=== PATIENT | female | born 1990 | race Caucasian/White ===

== ENCOUNTER 2020-03-13 10:03 | Emergency (ER) | payer OTHER ==
[~2020-03-13] VITALS: Ht 162.6 cm; Wt 68.0 kg
[2020-03-13 10:44] LABS: HEMATOCRIT 41.3 % (37.0-47.0); HEMOGLOBIN 13.3 g/dl (12.0-16.0); IMMATURE GRANULOCYTES 0.3 % (0.0-5.0); MEAN CELL VOLUME 90.2 fL CALC (80.0-100.0); MEAN CORPUSCULAR HGB CONC 32.2 g/dL CAL (32.0-36.0); NEUT# 4.82 thou/uL (2.00-7.15); RED BLOOD COUNT 4.58 mill/uL (4.20-5.60); RED CELL DISTRI WIDTH 11.7 % (11.5-15.5)
[2020-03-13 11:03] LABS: ALBUMIN 4.5 g/dL (3.2-5.0); ALKALINE PHOSPHATASE 56 u/l (38-126); ANION GAP 11 (6-22 (CALC)); BILIRUBIN, TOTAL 0.4 mg/dL (0.0-1.4); BUN 13 mg/dL (7-17); BUN/CREATININE RATIO 15 (12-20 (CALC)); CARBON DIOXIDE 28 mmol/l (22-30); CHLORIDE 104 mmol/l (95-108); CREATININE 0.8 mg/dL (0.5-1.0); GFR > 60 ML/MIN (>=60 (CALC)); GFR FOR AFR.AMER. > 60 ML/MIN (>=60 (CALC)); LIPASE 54 u/l (23-300); SGOT/AST 31 u/l (14-36); SODIUM 138 mmol/l (137-146); TOTAL PROTEIN 7.7 g/dL (6.3-8.2)
[2020-03-13 11:07] LABS: ETHYL ALCOHOL 0 mg/dl (0-30)
[2020-03-13 11:46] LABS: URINE BILIRUBIN - DIPSTICK NEGATIVE (NEGATIVE); URINE BLOOD DIPSTICK NEGATIVE (NEGATIVE); URINE COLOR YELLOW; URINE GLUCOSE - DIPSTICK NEGATIVE (NEGATIVE); URINE KETONE NEGATIVE (NEGATIVE); URINE LEUK ESTERASE NEGATIVE (NEGATIVE); URINE NITRITE - DIPSTICK NEGATIVE (Negative); URINE PH 6.5 (4.5-8.0); URINE PROTEIN - DIPSTICK NEGATIVE (NEG-TRACE); URINE SPECIFIC GRAVITY 1.015; URINE UROBILINOGEN - DIPSTICK 0.2 E.U./dL (0.2)
[2020-03-13] MEDS ORDERED: ZOFRAN4 M1 PO (13:30)
[2020-03-13] MEDS ORDERED: PROTONIX40 M2 PO (13:30)
[2020-03-13 13:42] VITALS: BP 116/68
== END 2020-03-13 13:44 | disposition home or self-care (01) | DRG 392 ==
LOC: ED 10:03
PROVIDERS: Family Medicine
DX: R10.13 Epigastric pain (principal); R10.11 Right upper quadrant pain; K82.9 Disease of gallbladder, unspecified; Z20.828 Contact with and (suspected) exposure to other viral communicable diseases

== ENCOUNTER 2021-08-01 05:50 | Emergency (ER) | payer OTHER ==
[~2021-08-01] VITALS: Ht 162.6 cm; Wt 72.0 kg
[~2021-08-01 05:50] MED LIST: PROTONIX40 M2 PO; ZOFRAN4 M1 PO
[2021-08-01 07:04] LABS: URINE BILIRUBIN - DIPSTICK NEGATIVE (NEGATIVE); URINE BLOOD DIPSTICK NEGATIVE (NEGATIVE); URINE COLOR YELLOW; URINE GLUCOSE - DIPSTICK NEGATIVE (NEGATIVE); URINE KETONE NEGATIVE (NEGATIVE); URINE LEUK ESTERASE NEGATIVE (NEGATIVE); URINE PROTEIN - DIPSTICK NEGATIVE (NEG-TRACE); URINE UROBILINOGEN - DIPSTICK 0.2 E.U./dL (0.2)
[2021-08-01 07:04] LABS: IMMATURE GRANULOCYTES 0.1 % (0.0-5.0); MEAN CELL VOLUME 87.4 fL CALC (80.0-100.0); MEAN CORPUSCULAR HGB 28.4 pG CALC (26.0-32.0); MEAN CORPUSCULAR HGB CONC 32.5 g/dL CAL (32.0-36.0); NEUT# 3.25 thou/uL (2.00-7.15); RED BLOOD COUNT 5.71 mill/uL (4.20-5.60); RED CELL DISTRI WIDTH 13.2 % (11.5-15.5)
[2021-08-01 07:13] LABS: HEMATOCRIT 49.9 % (37.0-47.0); HEMOGLOBIN 16.2 g/dl (12.0-16.0)
[2021-08-01 07:19] LABS: ALBUMIN 4.7 g/dL (3.2-5.0); ALKALINE PHOSPHATASE 76 u/l (38-126); AMYLASE 69 u/l (30-110); ANION GAP 14 (6-22 (CALC)); BILIRUBIN, TOTAL 0.5 mg/dL (0.0-1.4); BUN 16 mg/dL (7-17); BUN/CREATININE RATIO 19 (12-20 (CALC)); CARBON DIOXIDE 27 mmol/l (22-30); CHLORIDE 104 mmol/l (95-108); CREATININE 0.8 mg/dL (0.5-1.0); GFR > 60 ML/MIN (>=60 (CALC)); GFR FOR AFR.AMER. > 60 ML/MIN (>=60 (CALC)); LIPASE 49 u/l (23-300); SGOT/AST 30 u/l (14-36); SODIUM 141 mmol/l (137-146); TOTAL PROTEIN 7.9 g/dL (6.3-8.2)
[2021-08-01 07:39] LABS: URINE NITRITE - DIPSTICK NEGATIVE (Negative)
[2021-08-01 09:22] VITALS: BP 129/81
== END 2021-08-01 09:29 | disposition home or self-care (01) | DRG 392 ==
LOC: ED 05:50
PROVIDERS: Emergency Medicine
DX: K59.00 Constipation, unspecified (principal)
CPT/HCPCS: Q9967

== ENCOUNTER 2021-09-04 05:49 | Emergency (ER) | payer OTHER ==
[2021-09-04] VITALS (13 sets, daily range): BP systolic 105–131; BP diastolic 60–88
[~2021-09-04] VITALS: Ht 162.6 cm; Wt 73.0 kg
[2021-09-04 06:33] LABS: URINE BILIRUBIN - DIPSTICK NEGATIVE (NEGATIVE); URINE BLOOD DIPSTICK NEGATIVE (NEGATIVE); URINE COLOR YELLOW; URINE GLUCOSE - DIPSTICK NEGATIVE (NEGATIVE); URINE KETONE NEGATIVE (NEGATIVE); URINE LEUK ESTERASE TRACE (NEGATIVE); URINE PH 5.5 (4.5-8.0); URINE PROTEIN - DIPSTICK NEGATIVE (NEG-TRACE); URINE SPECIFIC GRAVITY >=1.030; URINE UROBILINOGEN - DIPSTICK 0.2 E.U./dL (0.2)
[2021-09-04 06:35] LABS: URINE NITRITE - DIPSTICK NEGATIVE (Negative)
[2021-09-04] MEDS ORDERED: METRONIDAZOLE500 MG PO (07:06)
[2021-09-04] MEDS ORDERED: DIFLUCAN150 MG PO (07:06)
== END 2021-09-04 07:22 | disposition home or self-care (01) | DRG 759 ==
LOC: ED 05:49
PROVIDERS: Family Medicine
DX: N76.0 Acute vaginitis (principal)

== ENCOUNTER 2022-03-31 08:28 | Emergency (ER) | payer BC ==
[~2022-03-31] VITALS: Ht 162.6 cm; Wt 72.0 kg
[~2022-03-31 08:28] MED LIST changes: +DIFLUCAN150 MG PO; +METRONIDAZOLE500 MG PO
[2022-03-31] MEDS ORDERED: AMOX/K CLAV875 M1 PO (09:00)
[2022-03-31 10:20] VITALS: BP 141/119
[2022-03-31] MEDS ORDERED: HYDROCO/APAP1 TA9 PO (13:13)
[2022-03-31] MEDS ORDERED: ZOFRAN4 MG/TAB PO (13:14)
== END 2022-03-31 10:32 | disposition home or self-care (01) | DRG 605 ==
LOC: ED 08:28
DX: S60.371A Other superficial bite of right thumb, initial encounter (principal); W54.0XXA Bitten by dog, initial encounter

== ENCOUNTER 2022-04-08 17:31 | Emergency (ER) | payer BC ==
[~2022-04-08] VITALS: Ht 162.6 cm; Wt 73.0 kg
[~2022-04-08 17:31] MED LIST changes: +AMOX/K CLAV875 M1 PO; +HYDROCO/APAP1 TA9 PO; +ZOFRAN4 MG/TAB PO
[2022-04-08 18:13] VITALS: BP 134/93
[2022-04-08 18:15] VITALS: BP 124/83
[2022-04-08 18:31] VITALS: BP 120/66
[2022-04-08 19:22] VITALS: BP 120/66
== END 2022-04-08 19:22 | disposition home or self-care (01) | DRG 951 ==
LOC: ED 17:31
DX: Z48.02 Encounter for removal of sutures (principal)

== ENCOUNTER 2022-05-30 19:27 | Emergency (ER) | payer BC | END 2022-05-30 22:00 | disposition left against medical advice (07) | DRG 951 | LOC: ED 19:27 → LWOBS 21:15 | DX: Z53.21 Procedure and treatment not carried out due to patient leaving prior to being seen by health care provider (principal) ==